=== PATIENT | female | born 1990 | race Caucasian/White ===

== ENCOUNTER 2019-03-10 09:51 | Outpatient (CLI) | payer MEDICAID, SELFPAY ==
[2019-03-10 10:27] LABS: Kit/Specimen SENT
[2019-03-10 10:42] LABS: Abs Immature Grans 0.02 k/cumm (0.0-0.09); Absolute Basophil Count 0.02 k/cumm (0.0-0.2); Absolute Eosinophil Count 0.09 k/cumm (0.0-0.7); Absolute Lymphocyte Count 1.93 k/cumm (1.2-3.4); Absolute Monocyte Count 0.57 k/cumm (0.11-0.7); Absolute Neutrophil Count 6.79 k/cumm (1.2-6.7); Basophils % 0.2; HCT 39.7 % (36.0-46.0); HGB 13.6 g/dL (12.0-15.5); Immature Grans % 0.2; Lymphocytes % 20.5; Mean Corp. HGB Concentration 34.3 g/dL (32.0-36.0); Mean Corpuscular Hemoglobin 30.2 pg (27.0-33.0); Mean Corpuscular Volume 88.2 fL (80-95); Mean Platelet Volume 10.9 fL (8.0-11.0); Monocytes % 6.1; Platelet Count 252 x1000/uL (130-400); RBC Distribution Width 12.3 % (11.7-14.6); White Blood Cell Count 9.42 k/cumm (4.4-10.8)
[2019-03-10 11:19] LABS: TSH (W/Ref FT4) 1.46 uIU/mL (0.358-3.74)
[2019-03-11 11:23] LABS: Varicella IgG Antibody Positive
[2019-03-11 11:25] LABS: Syphilis Serology (RPR) Negative (Negative)
[2019-03-11 12:27] LABS: Rubella IgG Ab (UVM) Equivocal
[2019-03-11 12:45] LABS: Hepatitis B Surface Ag Negative (NEGAT)
[2019-03-11 12:51] LABS: HIV-1/2 Ag & Ab Screen Negative (NEGAT); Hepatitis C Ab w Rflx HCV PCR Negative (NEGAT)
== END 2019-03-10 10:11 ==
PROVIDERS: Visit Provider Advanced Practice Midwife
DX: Z34.91 Encounter for supervision of normal pregnancy, unspecified, first trimester (principal); Z36.89 Encounter for other specified antenatal screening; N89.8 Other specified noninflammatory disorders of vagina; Z11.3 Encounter for screening for infections with a predominantly sexual mode of transmission; Z12.4 Encounter for screening for malignant neoplasm of cervix
CPT/HCPCS: 36415; 80055; 80307; 86787; 86803; 86850; 86900; 86901; 87340; 87389; 87491; 87591; 88142; 84443; 86592; 86762; 87086; 87480; 87510; 87660

== ENCOUNTER 2019-03-10 10:31 | Outpatient (REF) | payer MEDICAID, SELFPAY ==
--- NOTE | 2019-03-10 09:30 | PAPFT_PTH ---
PATIENT: BOY DIEGO LOC: [facility] U#:[id number] AGE/SX: 28/F ROOM: RE03/10/[address]: Aurora Durand : 1990 BED: DIS: 03/10/2019 SPEC #: [id number] RECD: 03/10/19 11:58 STATUS: AJ RERonnie #: [id number] SO: 03/10/19 09:[address]: Aurora Durand DEPT: [facility] Cytology RECD BY: Iris Mckoy ENTERED: 03/10/19 11:58 SP TYPE: PAPFT OTHR DR: Deedee Barrientos Tissues: 1 - CX/ENDOCX FOR PAP SMEARS Procedures: PAP THIN PREP/[facility]VM Screening Comments: [id number]
[2019-03-10 12:51] LABS: *AMPHETAMINES SCREEN URINE Negative (Negative); *BARBITURATES SCREEN URINE Negative (Negative); *BENZODIAZEPINES SCREEN URINE Negative (Negative); Cannabinoids THC Negative (Negative); Cocaine Screen,Urine Negative (Negative); METHADONE URINE SCREEN POSITIVE (Negative); OPIATES URINE SCREEN Negative (Negative)
[2019-03-10 12:58] LABS: Tricyclic Antidepressants Negative (Negative)
[2019-03-11 12:30] LABS: Chlamydia Result Negative; GC Result Negative; Specimen Description CERVIX
[2019-03-15 17:29] LABS: Buprenorphine Negative; Norbuprenorphine Negative
== END 2019-03-10 10:51 ==
LOC: LBN 10:31
PROVIDERS: Visit Provider Advanced Practice Midwife
DX: N89.8 Other specified noninflammatory disorders of vagina (principal); Z34.91 Encounter for supervision of normal pregnancy, unspecified, first trimester; Z11.3 Encounter for screening for infections with a predominantly sexual mode of transmission; Z12.4 Encounter for screening for malignant neoplasm of cervix
CPT/HCPCS: 80307; 87491; 87591; 88142; 87086; 87480; 87510; 87660

== ENCOUNTER 2019-04-06 08:51 | Outpatient (CLI) | payer MEDICAID, SELFPAY ==
[2019-04-06 10:32] LABS: Glucose,1 Hr (Glucola) 99 mg/dL (80-140)
== END 2019-04-06 09:11 ==
PROVIDERS: Visit Provider Advanced Practice Midwife
DX: Z34.92 Encounter for supervision of normal pregnancy, unspecified, second trimester (principal)
CPT/HCPCS: 36415; 82950

== ENCOUNTER 2019-05-05 01:24 | Outpatient (CLI) | payer MEDICAID, SELFPAY ==
--- NOTE | 2019-05-05 09:45 | DI.US_ITS ---
SYMPTOMS/DIAGNOSIS: , SURVEY, Z34.90 OB ULTRASOUND: Routine examination was performed. There is a single living intrauterine gestation. Estimated sonographic age is 19 weeks 4 days. The fetus is in the cephalic presentation. heart rate is 165 bpm. No abnormalities are identified. The placenta is posterior and low lying. The placental tip is approximately 1 cm from the internal os. Amniotic fluid appears within normal limits visually. IMPRESSION: 1. Single living intrauterine gestation. Estimated sonographic age is 19 weeks 4 days. 2. Low lying placenta. Predicted Gestational Age: Indication/History: 20 Wks Range: 19 to 21 Prior US done on: Determined by: First US X LMP History EDC by prior US: 09/22/19 For multiple gestations: Baby PLACENTA: Grade: 0-I Location: Anterior Posterior X PRESENTATION: RT LT LOW LYING X PREVIA Cephalic X Trans (Head RT LT ) Varied Breech BIOMETRY: Anatomy Identified: BPD: 42 mm 18+6 wks 4 chamber Heart X Heart Rate 165 BPM HC: 167 mm 19+3 wks LVOT X Post Fossa X AC: 141 mm 19+3 wks RVOT X Ventricles X FL: 33 mm 20+2 wks Stomach X Nose X Bladder X Lips X Cisterna Magna: 3 mm CI: 75 Kidneys X Palate X Cerebellum: 2.0 mm 3 vessel cord X Spine X EFW: 311 grms 32% Cord Insertion X NS= not seen Composite Age (US) 19+4 wks Many abnormalities cannot be diagnosed. A normal exam does not exclude congenital abnormality. EDC by US 09/25/2019 Amniotic Fluid Index: Normal COMMENTS: Placental tip is 1.0 to 1.3 cm from internal os RUQ: LUQ: RLQ: LLQ: Total: cm Biophysical Profile: Score 0/2 VERONIKA (>2cm) Respirations (>30 sec) Body flexion/extension Extremity flexion/extension TOTAL SCORE
== END 2019-05-05 01:44 ==
PROVIDERS: Visit Provider Advanced Practice Midwife
DX: Z34.92 Encounter for supervision of normal pregnancy, unspecified, second trimester (principal)
CPT/HCPCS: 80307; 76805

== ENCOUNTER 2019-05-05 13:02 | Outpatient (REF) | payer MEDICAID, SELFPAY ==
[2019-05-05 16:14] LABS: *AMPHETAMINES SCREEN URINE Negative (Negative); *BARBITURATES SCREEN URINE Negative (Negative); *BENZODIAZEPINES SCREEN URINE Negative (Negative); Cannabinoids THC Negative (Negative); Cocaine Screen,Urine Negative (Negative); METHADONE URINE SCREEN Negative (Negative); OPIATES URINE SCREEN Negative (Negative)
[2019-05-05 16:38] LABS: Tricyclic Antidepressants Negative (Negative)
[2019-05-13 02:44] LABS: Buprenorphine Negative; Norbuprenorphine Negative
== END 2019-05-05 13:22 ==
LOC: LBN 13:02
PROVIDERS: Visit Provider Advanced Practice Midwife
DX: Z34.92 Encounter for supervision of normal pregnancy, unspecified, second trimester (principal)
CPT/HCPCS: 80307

== ENCOUNTER 2019-06-30 00:36 | Outpatient (CLI) | payer MEDICAID, SELFPAY ==
--- NOTE | 2019-06-30 10:16 | DI.US_ITS ---
EXAM: US OB F/U FACIAL/LVOT/RVOT CLINICAL HISTORY: fsusg low-lying placenta, ck for migration. Z34.90 TECHNIQUE: Ultrasound performed using standard protocol. COMPARISON: US OB 2-3 trimester from 05/05/2019 FINDINGS: A viable cephalic [place] is demonstrated. The cardiac rate is 152 beats per minute. The amniotic fluid index is normal. A grade 1 posterior left low lying placenta is demonstrated. The tip of the p lacenta lies 1.8-2.3 cm from the internal os. The cervical length is 4.9 cm which is within normal l imits.
[2019-06-30 10:20] LABS: HGB 12.3 g/dL (12.0-15.5); Mean Corp. HGB Concentration 33.2 g/dL (32.0-36.0); Mean Corpuscular Hemoglobin 30.1 pg (27.0-33.0); Mean Corpuscular Volume 90.7 fL (80-95); Mean Platelet Volume 10.7 fL (8.0-11.0); Platelet Count 247 x1000/uL (130-400); RBC 4.08 m/cumm (4.00-5.20); RBC Distribution Width 12.8 % (11.7-14.6); White Blood Cell Count 12.25 k/cumm (4.4-10.8)
[2019-06-30 10:25] LABS: Glucose,1 Hr (Glucola) 155 mg/dL (80-140)
== END 2019-06-30 00:56 ==
PROVIDERS: Visit Provider Advanced Practice Midwife
DX: O44.43 Low lying placenta NOS or without hemorrhage, third trimester (principal)
CPT/HCPCS: 36415; 76815; 82950; 85027

== ENCOUNTER 2019-07-12 07:29 | Outpatient (CLI) | payer MEDICAID, SELFPAY ==
[2019-07-12 10:41] LABS: Glucose 1 Hour 170 mg/dL
[2019-07-12 12:26] LABS: Glucose 3 Hour 118 mg/dL
== END 2019-07-12 07:49 ==
PROVIDERS: Visit Provider Advanced Practice Midwife
DX: O99.810 Abnormal glucose complicating pregnancy (principal)
CPT/HCPCS: 36415; 82951

== ENCOUNTER 2019-08-09 13:33 | Outpatient (REF) | payer MEDICAID, SELFPAY | END 2019-08-09 13:53 | LOC: LBN 13:33 | PROVIDERS: Visit Provider Advanced Practice Midwife | DX: O26.893 Other specified pregnancy related conditions, third trimester (principal); N89.8 Other specified noninflammatory disorders of vagina | CPT/HCPCS: 87480; 87510; 87660 ==

== ENCOUNTER 2019-08-30 16:21 | Outpatient (REF) | payer MEDICAID, SELFPAY ==
[2019-08-30 17:40] LABS: *AMPHETAMINES SCREEN URINE Negative (Negative); *BARBITURATES SCREEN URINE Negative (Negative); *BENZODIAZEPINES SCREEN URINE Negative (Negative); Cannabinoids THC Negative (Negative); Cocaine Screen,Urine Negative (Negative); METHADONE URINE SCREEN Negative (Negative); OPIATES URINE SCREEN Negative (Negative)
[2019-08-30 17:59] LABS: Tricyclic Antidepressants Negative (Negative)
[2019-09-03 10:51] LABS: Buprenorphine Negative; Norbuprenorphine Negative
== END 2019-08-30 16:41 ==
LOC: LBN 16:21
PROVIDERS: Visit Provider Advanced Practice Midwife
DX: Z34.93 Encounter for supervision of normal pregnancy, unspecified, third trimester (principal); Z36.85 Encounter for antenatal screening for Streptococcus B
CPT/HCPCS: 80307; 87081

== ENCOUNTER 2019-09-03 14:31 | Outpatient (CLI) | payer MEDICAID, SELFPAY | END 2019-09-03 14:51 | PROVIDERS: Visit Provider Advanced Practice Midwife | DX: O36.8130 Decreased fetal movements, third trimester, not applicable or unspecified (principal); O12.03 Gestational edema, third trimester; Z3A.37 37 weeks gestation of pregnancy | CPT/HCPCS: 59025 ==

== ENCOUNTER 2019-09-03 16:27 | Outpatient (CLI) | payer MEDICAID, SELFPAY ==
[2019-09-03 16:49] LABS: HCT 37.3 % (36.0-46.0); HGB 12.4 g/dL (12.0-15.5); Mean Corp. HGB Concentration 33.2 g/dL (32.0-36.0); Mean Corpuscular Hemoglobin 29.3 pg (27.0-33.0); Mean Corpuscular Volume 88.2 fL (80-95); Mean Platelet Volume 11.4 fL (8.0-11.0); Platelet Count 210 x1000/uL (130-400); RBC 4.23 m/cumm (4.00-5.20); RBC Distribution Width 13.4 % (11.7-14.6); White Blood Cell Count 10.91 k/cumm (4.4-10.8)
[2019-09-03 17:27] LABS: PROTEIN 45.5 mg/dL
[2019-09-03 17:34] LABS: Prot/Crea Ur Ratio 0.12
[2019-09-03 18:26] LABS: ALT 10 U/L (14-59); AST 14 U/L (15-37); Albumin 2.4 g/dL (3.4-5.0); Alkaline Phosphatase 166 U/L (46-116); Anion Gap 11.2 mmol/L (3-11); BUN 7 mg/dL (7-18); Bilirubin, Total 0.4 mg/dL (0.2-1.0); CO2 24.8 mmol/L (21.0-32.0); CREATININE 0.69 mg/dL (0.55-1.02); Calcium 8.6 mg/dL (8.5-10.1); Chloride 107 mmol/L (98-107); Glucose 100 mg/dL (74-106); Sodium 143 mmol/L (136-145); Total Protein 5.8 g/dL (6.4-8.2); Uric Acid 6.6 mg/dL (2.6-6.0)
== END 2019-09-03 16:47 ==
PROVIDERS: Visit Provider Advanced Practice Midwife
DX: O14.93 Unspecified pre-eclampsia, third trimester (principal)
CPT/HCPCS: 36415; 80053; 85027; 82565; 84156; 84550

== ENCOUNTER 2019-09-10 14:49 | Outpatient (CLI) | payer MEDICAID, SELFPAY ==
[2019-09-10 15:33] LABS: HCT 37.6 % (36.0-46.0); HGB 12.5 g/dL (12.0-15.5); Mean Corp. HGB Concentration 33.2 g/dL (32.0-36.0); Mean Corpuscular Volume 87.2 fL (80-95); Mean Platelet Volume 11.4 fL (8.0-11.0); Platelet Count 213 x1000/uL (130-400); RBC 4.31 m/cumm (4.00-5.20); RBC Distribution Width 13.7 % (11.7-14.6); White Blood Cell Count 12.31 k/cumm (4.4-10.8)
[2019-09-10 16:10] LABS: PROTEIN 39.7 mg/dL
[2019-09-10 16:12] LABS: COMMENT (LAB VIEW ONLY) 184.66 mg/dL; Prot/Crea Ur Ratio 0.21
[2019-09-10 16:19] LABS: ALT 13 U/L (14-59); AST 13 U/L (15-37); Albumin 2.6 g/dL (3.4-5.0); Alkaline Phosphatase 162 U/L (46-116); Anion Gap 13.5 mmol/L (3-11); BUN 5 mg/dL (7-18); Bilirubin, Total 0.5 mg/dL (0.2-1.0); CO2 21.5 mmol/L (21.0-32.0); CREATININE 0.53 mg/dL (0.55-1.02); Calcium 8.9 mg/dL (8.5-10.1); Chloride 106 mmol/L (98-107); Glucose 70 mg/dL (74-106); Potassium 3.9 mmol/L (3.5-5.1); Sodium 141 mmol/L (136-145)
[2019-09-10 16:29] LABS: Uric Acid 6.1 mg/dL (2.6-6.0)
== END 2019-09-10 15:09 ==
PROVIDERS: Visit Provider Advanced Practice Midwife
DX: O14.03 Mild to moderate pre-eclampsia, third trimester (principal)
CPT/HCPCS: 36415; 80053; 85027; 82565; 84156; 84550

== ENCOUNTER 2019-09-17 03:34 | Outpatient (CLI) | payer MEDICAID, SELFPAY ==
--- NOTE | 2019-09-17 13:06 | DI.US_ITS ---
EXAM: US OB VERONIKA AND WEIGHT CLINICAL HISTORY: S>D, Z34.90, SUPERVISION NORMAL TECHNIQUE: Ultrasound performed using standard protocol. Ultrasound was performed utilizing protocol. COMPARISON: US OB F/U FACIAL/LVOT/RVOT from 06/30/2019 FINDINGS: biometry is consistent with a gestational age of 38 weeks 2 days and EDC of 09/29/2019. The es timated weight is 3452 grams, which is at the 47th percentile for predicted gestational age. Placenta is posterior with no placenta previa. There is visually a normal quantity of amniotic fluid and the VERONIKA is 16. Fetus is in cephalic presentation. cardiac activity observed at a rate of 133 BPM.
== END 2019-09-17 03:54 ==
PROVIDERS: Visit Provider Advanced Practice Midwife
DX: O26.843 Uterine size-date discrepancy, third trimester (principal); Z3A.38 38 weeks gestation of pregnancy; Z36.89 Encounter for other specified antenatal screening
CPT/HCPCS: 76816

== ENCOUNTER 2019-09-17 14:20 | Outpatient (CLI) | payer MEDICAID, SELFPAY | END 2019-09-17 14:40 | PROVIDERS: Visit Provider Advanced Practice Midwife | DX: O13.3 Gestational [pregnancy-induced] hypertension without significant proteinuria, third trimester (principal); Z3A.39 39 weeks gestation of pregnancy | CPT/HCPCS: 36415; 80053; 85027; 59025; 84550 ==

== ENCOUNTER 2019-09-17 15:10 | Outpatient (REF) | payer MEDICAID, SELFPAY ==
[2019-09-17 16:32] LABS: Prot/Crea Ur Ratio 0.28
== END 2019-09-17 15:30 ==
LOC: NCHCN 15:10
PROVIDERS: Visit Provider Advanced Practice Midwife
DX: O14.93 Unspecified pre-eclampsia, third trimester (principal); O26.893 Other specified pregnancy related conditions, third trimester
CPT/HCPCS: 82565; 84156

== ENCOUNTER 2019-09-17 17:10 | Inpatient (IN) | payer MEDICAID, SELFPAY ==
[2019-09-17 15:39] LABS: HCT 38.1 % (36.0-46.0); HGB 12.8 g/dL (12.0-15.5); Mean Corp. HGB Concentration 33.6 g/dL (32.0-36.0); Mean Corpuscular Hemoglobin 29.2 pg (27.0-33.0); Platelet Count 215 x1000/uL (130-400); RBC 4.38 m/cumm (4.00-5.20); RBC Distribution Width 14.1 % (11.7-14.6); White Blood Cell Count 12.51 k/cumm (4.4-10.8)
[2019-09-17 15:53] LABS: ALT 9 U/L (14-59); AST 13 U/L (15-37); Albumin 2.4 g/dL (3.4-5.0); Alkaline Phosphatase 167 U/L (46-116); Anion Gap 10.8 mmol/L (3-11); BUN 7 mg/dL (7-18); Bilirubin, Total 0.4 mg/dL (0.2-1.0); CO2 24.2 mmol/L (21.0-32.0); CREATININE 0.48 mg/dL (0.55-1.02); Calcium 9.2 mg/dL (8.5-10.1); Chloride 106 mmol/L (98-107); Glucose 93 mg/dL (74-106); Potassium 4.1 mmol/L (3.5-5.1); Sodium 141 mmol/L (136-145); Total Protein 6.4 g/dL (6.4-8.2)
[2019-09-17] MEDS: miSOPROStol 25 MCG TAB PO ×2 (18:52→23:34)
[2019-09-17] MEDS: Zolpidem 5 MG TAB 10 MG PO (20:54)
[2019-09-17] MEDS: Lactated Ringers 1,000 ML 200 ML IV (20:54)
[2019-09-17] MEDS: Penicillin G POT. 5,000,000 UNITS in Normal Saline 100 ML 200 UNITS IVPB (21:50)
[2019-09-18] MEDS: Lactated Ringers 1,000 ML 200 ML IV (02:05)
[2019-09-18] MEDS: Penicillin G POT. 3,000,000 UNITS in Normal Saline 50 ML 100 UNITS IVPB ×2 (02:06→06:32)
[2019-09-18] MEDS: miSOPROStol 25 MCG TAB PO (03:37)
[2019-09-18] MEDS: FentaNYL/ROPIvacaine 2 mcg/ml and 0.1% 200 ML CADD Cassette EP (06:45)
[2019-09-18] MEDS: Sodium Citrate 30 ML CUP (07:52)
[2019-09-18] MEDS: Terbutaline 1 MG/ML VIAL 0.25 MG SC (07:54)
[2019-09-18] MEDS: Azithromycin 500 MG VIAL (07:54)
--- NOTE | 2019-09-18 08:31 | PLAC_PTH ---
PATIENT: BOY DIEGO LOC: OBS U#:[id number] AGE/SX: 29/F ROOM: OBS.303 RE09/17/[address]: Jian Devine RN : 1990 BED: A DIS: 09/20/2019 SPEC #: [id number] RECD: 09/20/19 10:57 STATUS: AJ REQ #: [id number] SO: 09/18/19 08:[address]: Jian Devine DEPT: Surgical Specimen RECD BY: Elinor Kurtz ENTERED: 09/20/19 10:57 SP TYPE: PLAC OTHR DR: Deedee Barrientos Tissues: 1 - PLACENTA (3RD TRIMESTER) Procedures: GROSS AND MICRO LEVEL 5 Comments: [id number]
--- NOTE | 2019-09-18 09:14 | DI.RAD_ITS ---
EXAM: XR PELVIS AP INDICATION: STAT C SECTION NO COUNT PRIOR TO INCISION. COMPARISON: No exams were available for comparison TECHNIQUE: 2D digital imaging was performed. FINDINGS: There is a curvilinear radiopaque foreign body projected over the L2 and L3 vertebral bodies. It is at the upper aspect of the image. This may represent an epidural catheter given the patient's histor y. No other radiopaque foreign bodies are seen. Bowel gas pattern is unremarkable. The bones are u nremarkable. There is some limitation to the study due to the patient's body habitus. IMPRESSION: Curvilinear radiopaque foreign body projected at the upper aspect of the image over the L2 and L3 skip tebral bodies. This may represent an epidural catheter. Please correlate clinically. No other radiopaque foreign body is seen.
--- NOTE | 2019-09-18 09:35 | DI.VRAD_ITS ---
PROCEDURE INFORMATION: Exam: XR Pelvis Exam date and time: 09/18/2019 9:18 AM Age: 29 years old Clinical indication: Other: Stat csection no count prior to incision TECHNIQUE: Imaging protocol: XR pelvis. Views: 1 or 2 view. COMPARISON: US PELVIS TRANSVAG 12/12/2015 4:39 PM FINDINGS: Limitations: The study is technically limited by the patient's body habitus. Bones/joints: No acute osseous abnormality. Soft tissues: There is a curvilinear radiopaque foreign body projecting over the mid abdomen/lumbar spine at the upper aspect of the image. This could be due to an epidural catheter given the history. Otherwise, no radiopaque foreign bodies such as an instrument or needle is identified. Gastrointestinal tract: No dilated gas-filled loops of bowel. IMPRESSION: When allowing for what could be an epidural catheter, no radiopaque foreign body is identified. Dictated and Authenticated by: Ricardo Guadalupe MD. Ordering:GUANACO Sheppard MD
--- NOTE | 2019-09-18 09:36 | W.PM.PROGNOT ---
Date of Service Date of service: 09/18/19 Time of Service: 09:36 Assessment and Plan Assessment and plan (1) Gestational hypertension: Status: Acute (2) Placental abruption: Status: Acute (3) Non-reassuring electronic monitoring tracing: Status: Acute Assessment and plan: My recommendation to the patient was to proceed with stat section. The patient had been counseled on risks of surgery. Verbal consent only was obtained prior to surgery and written consent forms were signed later. All questions had been answered. Please refer to operative report for details. Subjective Subjective Interval history since last seen: Late Entry Note I was contacted initially to evaluate the patient at approximately 0430 for moderate vaginal bleeding during labor. The patient is undergoing IOL for GHTN and received doses of cytotec overnight. On evaluate the tracing was category I with no decelerations. Overall EBL estimated at 45-50 ml by that point. Cx 2 cm by CNMs exam. The tracing remained reassuring until approximately 0730 when I was called back in. On evaluation the tracing was category III. The OR team had been called prior to my arrival and the decision to proceed with stat section was made. Repeat exam prior to departure for the operating room was 7 cm in dilatation and 90% effaced. Objective Objective Clinical Data: Abnormal lab results 09/17/19 09/17/19 Range/Units 15:30 15:30 WBC 12.51 H (4.4-10.8) k/cumm MPV 12.0 H (8.0-11.0) fL Creatinine 0.48 L (0.55-1.02) mg/dL AST 13 L (15-37) U/L ALT 9 L (14-59) U/L Alkaline Phosphatase 167 H (46-116) U/L Albumin 2.4 L (3.4-5.0) g/dL Intake & Output 09/17/19 09/17/19 09/18/19 11:59 23:59 11:59 Intake Total 110 / 110 2100 / 2100 Output Total 900 / 900 Balance 110 / 110 1200 / 1200 Weight 234 lb Intake: IV 110 / 110 2100 / 2100 Output: Urine 100 / 100 Estimated Blood Loss 800 / 800 Other: Urine Color Light Crys Urine Appearance Clear Laboratory Results WBC Cancelled 09/17/19 Unknown RBC Cancelled 09/17/19 Unknown Hgb Cancelled 09/17/19 Unknown Hct Cancelled 09/17/19 Unknown MCV Cancelled 09/17/19 Unknown MCH Cancelled 09/17/19 Unknown MCHC Cancelled 09/17/19 Unknown RDW Cancelled 09/17/19 Unknown Plt Count Cancelled 09/17/19 Unknown MPV Cancelled 09/17/19 Unknown Sodium 141 mmol/L (136-145) 09/17/19 15:30 Potassium 4.1 mmol/L (3.5-5.1) 09/17/19 15:30 Chloride 106 mmol/L (98-107) 09/17/19 15:30 Carbon Dioxide 24.2 mmol/L (21.0-32.0) 09/17/19 15:30 Anion Gap 10.8 mmol/L (3-11) 09/17/19 15:30 BUN 7 mg/dL (7-18) 09/17/19 15:30 Creatinine 0.48 mg/dL (0.55-1.02) L 09/17/19 15:30 Estimated GFR/1.73 m2 >= 60.00 (mL/min/1.73m2) 09/17/19 15:30 Glucose 93 mg/dL (74-106) 09/17/19 15:30 Uric Acid 6.0 mg/dL (2.6-6.0) 09/17/19 15:30 Calcium 9.2 mg/dL (8.5-10.1) 09/17/19 15:30 Total Bilirubin 0.4 mg/dL (0.2-1.0) 09/17/19 15:30 AST 13 U/L (15-37) L 09/17/19 15:30 ALT 9 U/L (14-59) L 09/17/19 15:30 Alkaline Phosphatase 167 U/L (46-116) H 09/17/19 15:30 Total Protein 6.4 g/dL (6.4-8.2) 09/17/19 15:30 Albumin 2.4 g/dL (3.4-5.0) L 09/17/19 15:30 Patient ABO/Rh O Positive 09/17/19 17:27 Antibody Screen Negative 09/17/19 17:27
[2019-09-18] MEDS: Normal Saline Flush 10 ML SYR IVP (10:00)
[2019-09-18] MEDS: HYDROmorphone 2 MG/ML VIAL IVP ×2 (10:00→10:18)
[2019-09-18] MEDS: ACETAMINOPHEN 1,000 MG/100 ML BTL 400 MG IVPB (10:10)
[2019-09-18] MEDS: LORazepam 2 MG/ML VIAL 1 MG IVP (10:30)
[2019-09-18] MEDS: Ketorolac 30 MG/ML VIAL IVP ×2 (16:12→22:37)
[2019-09-18] MEDS: Lactated Ringers 1,000 ML 120 ML IV (16:14)
[2019-09-19] MEDS: Ketorolac 30 MG/ML VIAL IVP ×2 (04:15→10:03)
[2019-09-19 07:38] LABS: HCT 31.4 % (36.0-46.0); HGB 10.1 g/dL (12.0-15.5); Mean Corp. HGB Concentration 32.2 g/dL (32.0-36.0); Mean Corpuscular Hemoglobin 28.6 pg (27.0-33.0); Mean Platelet Volume 11.3 fL (8.0-11.0); Platelet Count 175 x1000/uL (130-400); RBC 3.53 m/cumm (4.00-5.20); RBC Distribution Width 14.3 % (11.7-14.6); White Blood Cell Count 10.74 k/cumm (4.4-10.8)
--- NOTE | 2019-09-19 08:27 | W.PM.PROGNOT ---
Date of Service Date of service: 09/19/19 Time of Service: 08:27 Assessment and Plan Assessment and plan (1) S/P section: Status: Acute Assessment and plan: Plan to discontinue [employer]GER and switch to oral meds. Saline lock IVFs Encourage ambulation Able to shower this morning and remove dressing. Subjective Subjective Interval history since last seen: Doing well. 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 [place] remains in place. Objective Objective Clinical Data: Abnormal lab results 09/19/19 Range/Units 07:20 RBC 3.53 L (4.00-5.20) m/cumm Hgb 10.1 L D (12.0-15.5) g/dL Hct 31.4 L (36.0-46.0) % MPV 11.3 H (8.0-11.0) fL Vital Signs Pain Level 6 09/19/19 04:15 Intake & Output 09/18/19 09/18/19 09/19/19 11:59 23:59 11:59 Intake Total 2200 / 2200 Output Total 900 / 900 Balance 1300 / 1300 Intake: IV 2200 / 2200 Output: Urine 100 / 100 Estimated Blood Loss 800 / 800 Other: Urine Color Light Crys Urine Appearance Clear Laboratory Results WBC 10.74 k/cumm (4.4-10.8) 09/19/19 07:20 RBC 3.53 m/cumm (4.00-5.20) L 09/19/19 07:20 Hgb 10.1 g/dL (12.0-15.5) L D 09/19/19 07:20 Hct 31.4 % (36.0-46.0) L 09/19/19 07:20 MCV 89.0 fL (80-95) 09/19/19 07:20 MCH 28.6 pg (27.0-33.0) 09/19/19 07: MCHC 32.2 g/dL (32.0-36.0) 09/19/19 07:20 RDW 14.3 % (11.7-14.6) 09/19/19 07:20 Plt Count 175 x1000/uL (130-400) 09/19/19 07:20 MPV 11.3 fL (8.0-11.0) H 09/19/19 07:20 Sodium 141 mmol/L (136-145) 09/17/19 15:30 Potassium 4.1 mmol/L (3.5-5.1) 09/17/19 15:30 Chloride 106 mmol/L (98-107) 09/17/19 15:30 Carbon Dioxide 24.2 mmol/L (21.0-32.0) 09/17/19 15:30 Anion Gap 10.8 mmol/L (3-11) 09/17/19 15:30 BUN 7 mg/dL (7-18) 09/17/19 15:30 Creatinine 0.48 mg/dL (0.55-1.02) L 09/17/19 15:30 Estimated GFR/1.73 m2 >= 60.00 (mL/min/1.73m2) 09/17/19 15:30 Glucose 93 mg/dL (74-106) 09/17/19 15:30 Uric Acid 6.0 mg/dL (2.6-6.0) 09/17/19 15:30 Calcium 9.2 mg/dL (8.5-10.1) 09/17/19 15:30 Total Bilirubin 0.4 mg/dL (0.2-1.0) 09/17/19 15:30 AST 13 U/L (15-37) L 09/17/19 15:30 ALT 9 U/L (14-59) L 09/17/19 15:30 Alkaline Phosphatase 167 U/L (46-116) H 09/17/19 15:30 Total Protein 6.4 g/dL (6.4-8.2) 09/17/19 15:30 Albumin 2.4 g/dL (3.4-5.0) L 09/17/19 15:30 Patient ABO/Rh O Positive 09/17/19: Antibody Screen Negative 09/17/19:
[2019-09-19] MEDS: Lactated Ringers 1,000 ML 120 ML IV (09:49)
[2019-09-19] MEDS: Measles, Mumps, & Rubella Vaccine 0.5 ML VIAL SC (10:04)
[2019-09-19] MEDS: Ibuprofen 600 MG TAB PO ×2 (15:54→23:11)
[2019-09-19] MEDS: Docusate Sodium 100 MG CAP PO (15:54)
[2019-09-19] MEDS: oxyCODONE 5 mg/Acetaminophen 325 mg TAB 1 TAB PO ×2 (17:50→23:10)
[2019-09-20] MEDS: oxyCODONE 5 mg/Acetaminophen 325 mg TAB 1 TAB PO ×2 (03:53→11:15)
[2019-09-20] MEDS: Ibuprofen 600 MG TAB PO (11:15)
--- NOTE | 2019-09-20 13:30 | W.PM.PROGNOT ---
Date of Service Date of service: 09/20/19 Time of Service: 13:30 Assessment and Plan Assessment and plan (1) S/P section: Status: Acute Assessment and plan: Plan for discharge home today at patient request. Discharge instructions were given. Subjective Subjective Interval history since last seen: Doing well. No problems overnight. Pain well controlled. Ambulatory. Tolerating regular diet. Minimal lochia. Exam GI Other: On exam incision is clean dry and intact. Objective Objective Clinical Data: Vital Signs Pain Level 8 09/20/19 11:15 Intake & Output 09/19/19 09/20/19 09/20/19 23:59 11:59 23:59 Intake Total 502 / 1502 Balance 502 / 1502 Intake: IV 502 / 1502 Laboratory Results WBC 10.74 k/cumm (4.4-10.8) 09/19/19 07:20 RBC 3.53 m/cumm (4.00-5.20) L 09/19/19 07:20 Hgb 10.1 g/dL (12.0-15.5) L D 09/19/19 07:20 Hct 31.4 % (36.0-46.0) L 09/19/19 07:20 MCV 89.0 fL (80-95) 09/19/19 07:20 MCH 28.6 pg (27.0-33.0) 09/19/19 07:20 MCHC 32.2 g/dL (32.0-36.0) 09/19/19 07:20 RDW 14.3 % (11.7-14.6) 09/19/19 07:20 Plt Count 175 x1000/uL (130-400) 09/19/19 07:20 MPV 11.3 fL (8.0-11.0) H 09/19/19 07:20 Sodium 141 mmol/L (136-145) 09/17/19 15:30 Potassium 4.1 mmol/L (3.5-5.1) 09/17/19 15:30 Chloride 106 mmol/L (98-107) 09/17/19 15:30 Carbon Dioxide 24.2 mmol/L (21.0-32.0) 09/17/19 15:30 Anion Gap 10.8 mmol/L (3-11) 09/17/19 15:30 BUN 7 mg/dL (7-18) 09/17/19 15:30 Creatinine 0.48 mg/dL (0.55-1.02) L 09/17/19 15:30 Estimated GFR/1.73 m2 >= 60.00 (mL/min/1.73m2) 09/17/19 15:30 Glucose 93 mg/dL (74-106) 09/17/19 15:30 Uric Acid 6.0 mg/dL (2.6-6.0) 09/17/19 15:30 Calcium 9.2 mg/dL (8.5-10.1) 09/17/19 15:30 Total Bilirubin 0.4 mg/dL (0.2-1.0) 09/17/19 15:30 AST 13 U/L (15-37) L 09/17/19 15:30 ALT 9 U/L (14-59) L 09/17/19 15:30 Alkaline Phosphatase 167 U/L (46-116) H 09/17/19 15:30 Total Protein 6.4 g/dL (6.4-8.2) 09/17/19 15:30 Albumin 2.4 g/dL (3.4-5.0) L 09/17/19 15:30 Patient ABO/Rh O Positive 09/17/19: Antibody Screen Negative 09/17/19:
--- NOTE | 2019-09-22 14:37 | W.PM.OP ---
Date of service: 09/18/19 Time of Service: 10:00 Operative Note Operative Note DATE OF PROCEDURE: 09/18/19 PRE-OP DIAGNOSIS: 39 weeks. GHTN. Possible placental abruption. NRFHTs POST-OP DIAGNOSIS: same PROCEDURE: Stat primary low transverse section SURGEON: Silver Brennan ASSISTING SURGEON: Jian Devine BRONZE PLATER: Betsy Morgan ANESTHESIA: epidural ESTIMATED BLOOD LOSS: 800 PATHOLOGY: other (Placenta) COMPLICATIONS: None Patient was transported to: floor Patient's condition: stable Indications: Bloody amniotic fluid c/w placental abruption. Delivered LBF Procedure Description: Patient was taken to the operating room with epidural anesthesia was achieved the patient had been prepped and draped in usual sterile manner. A Pfannenstiel incision was made with a #10 scalpel and sharp dissection was carried down to the underlying fascia. The fascia was incised in the midline and the incision was carried laterally in either direction via stretch. The rectus muscles divided swollen linea alba with blunt digital dissection and the peritoneum was entered with blunt digital dissection. Peritoneal incision extended superiorly and inferiorly with blunt and sharp dissection. The bladder blade was then inserted. The vesicouterine flap was incised in a transverse manner with the scalpel and the bladder flap developed digitally. The lower uterine segment was incised in a transverse manner with a scalpel incision was carried laterally direction via stretch. was found in cephalic presentation the amniotic fluid was bloody on entrance. The infant was delivered atraumatically and handed off to the awaiting powersaw supervisor. The placenta was manually extracted and the uterus was cleared of all clots and debris. The hysterotomy was closed with a running locked stitch of #1 chromic. A second indicating layer of #1 chromic in a Lambert stitch was used to complete the repair and achieve hemostasis. The bladder flap was reapproximated with a running stitch of 3-0 Vicryl. The gutters were cleared of all clots and debris. The peritoneum was closed with a running stitch of 2-0 Vicryl. The subfascial space was thoroughly inspected and was noted to be hemostatic. The fascia was closed with a running stitch of 0 Vicryl. The subcutaneous tissues were closed with interrupted sutures of 3-0 Vicryl. The skin was closed with a running subcuticular stitch of 4 Monocryl and Dermabond was applied. Because of the urgency of the procedure a complete preoperative instrument count could not be completed. A plain film abdominal x-ray was obtained prior to the conclusion of the procedure confirming no retained surgical foreign body. The patient tolerated the procedure well and was transferred to the floor in stable condition.
== END 2019-09-20 15:35 | disposition home or self-care (01) | DRG 786 ==
PROVIDERS: Obstetrics & Gynecology; Admitting Provider Advanced Practice Midwife; Visit Provider Advanced Practice Midwife
PROC: 10D00Z1 Extraction of Products of Conception, Low, Open Approach (ICD-10-PCS; CPT 59514; principal; 2019-09-18 08:20)
DX: O76 Abnormality in fetal heart rate and rhythm complicating labor and delivery (principal); O45.93 Premature separation of placenta, unspecified, third trimester; Z37.0 Single live birth; O13.4 Gestational [pregnancy-induced] hypertension without significant proteinuria, complicating childbirth; O99.824 Streptococcus B carrier state complicating childbirth; O99.344 Other mental disorders complicating childbirth; F41.9 Anxiety disorder, unspecified; Z23 Encounter for immunization
CPT/HCPCS: 59514; 36415; 80053; 85027; 86850; 86900; 86901; 99233; 72170; 84550; 88307; J0131; J0456; J0690; J1885; J2001; J2060; J2405; J2540; J2590; J3490

== ENCOUNTER 2019-11-04 14:36 | Outpatient (CLI) | payer MEDICAID, SELFPAY ==
[2019-11-04 15:07] LABS: HCG Quant, Pregnancy < 1 mIU/mL (1-3)
== END 2019-11-04 14:56 ==
PROVIDERS: Visit Provider Advanced Practice Midwife
DX: Z72.51 High risk heterosexual behavior (principal)
CPT/HCPCS: 36415; 84702